=== PATIENT | male | born 1975 | race African-American/Black ===

== ENCOUNTER 2025-01-05 08:43 | Observation (INO) ==
--- NOTE | 2024-12-28 14:50 | History & Physical Report ---
Date of Service December 28, 2024 Assessment & Plan (1) Patellar tendon rupture: Plan: PRE-OP Diagnosis: Left knee patellar tendon rupture Planned Procedure: Left knee patellar tendon reconstruction with Achilles tendon autograft; possible hamstring tendon autograft Plan: Patient is scheduled to undergo this procedure with the [facility] as an inpatient with Dr. Jonas on January. Risks and complications of the procedure such as: Infection, bleeding, pain, scarring, nerve and blood vessel damage, weakness, wound problems, stiffness, incomplete relief of symptoms, tendon or ligament injury, hardware failure, blood clots, embolism, heart attack, stroke and were explained to the patient at his visit today. Informed consent to perform the procedure will be obtained on the day of surgery with Dr. Jonas present. At this point there is no clinical indication for any preoperative medical clearance or testing. During today's visit the PDMP was checked and no red flags were raised (from prescribing the patient an opioid analgesic for postoperative pain control. We will have the pharmacy [facility] the [facility] provide the patient with oxycodone, diclofenac sodium, aspirin and extra-strength Tylenol. Patient will most likely be in a splint or cast following the surgery. Will most likely transition him into a knee immobilizer at his 2-week postoperative follow-up visit. Patient will need physical therapy when available at the [facility]. I showed him some quad strengthening exercises that he can do on his own following surgery. Crutches will be provided by the [facility] and the patient will bring them with him on the day of the surgery. Patient is scheduled for a 2-week follow-up with Dr. Jonas on January 17. If he has questions or concerns prior to the procedure he will make the medical staff at [facility] aware. This chart was completed utilizing [employer] voice recognition software. Grammatical errors, random word insertions, pronoun errors, and in complete sentences are an occasional consequence of the system. Any questions or concerns about the content, text, or information contained within the body of this dictation should be addressed directly to the physician for clarification. History of Present Illness Chief Complaint: Chief Complaint: Left knee pain Primary Care Provider: [facility] History of Present Illness (including history relevant to procedure): This 49-year-old male inmate from [facility] presents to the clinic today for his preoperative history and physical. Patient states that approximately 5 years ago, the patient tore his patellar tendon while playing basketball. His foot slipped and caused him to fall on the concrete. He was seen at a hospital in [place] at the time, but declined to have surgery done at that time. However, he has continued to have problems with the knee ever since. The pain is mostly in his knee cap and has been bothering him intermittently. Occasionally, his knee will buckle and cause him to fall. After the initial injury, he was falling 3-4 times daily, and this has reduced to 1-2 times weekly more recently. He reports difficulty walking up stairs and has to hold onto the railing for stability. The patient has not been able to run since the injury, and he also cannot squat or lift. Patient is elected to proceed with surgical intervention at this time. Review Of Systems: A 12 point review of systems is performed and is unremarkable except for those things stated in the HPI and past medical history. Past Medical History: Problems: Hypercholesterolemia Hypertension ADHD Anemia Hiatal hernia History of hepatitis Procedure History Procedure Procedure Date Comments ACL reconstruction Hernia repair Allergies and Sensitivities: PCN (penicillin)(unknown) Current Home Meds: (Last Updated 12/28 09:07) amLODIPine ammonium lactate topical (ammonium lactate 5% topical lotion) atorvastatin (atorvastatin 10 mg oral tablet) 10 mg PO Daily multivitamin (Vitamin A & D) Initial Wt: 12/28 84.3 kg 185 lb Allergies Allergy/AdvReac Type Severity Reaction Status Date / Time Penicillins Allergy Unknown Verified 12/28/24 10:34 Home Medications Medication Instructions Recorded Confirmed Type amlodipine 10 mg tablet 10 mg PO QAM 12/28/24 12/28/24 History ammonium lactate 12 % lotion 1 applic topical BID 12/28/24 12/28/24 History atorvastatin 10 mg tablet 10 mg PO QAM 12/28/24 12/28/24 History vitamin A and D 1 applic topical BID 12/28/24 12/28/24 History Past Med/Surg History Problem List (Updated 12/28/24 @ 14:49 by Kurt Graves PA-C) Patellar tendon rupture Medical History Inmate in correctional facility Pain in left knee Other derangements of patella, left knee Ichthyosis vulgaris Hypertension, benign Hyperlipidemia HCV (hepatitis C virus) Disorder of the skin and subcutaneous tissue, unspecified Surgical History Surgical history unknown Social History Smoking Status: Unknown if ever smoked Preferred Language: Unknown Communication Ability: Unknown 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 Extraocular movements are intact Throat: Posterior oropharynx clear with absence of edema, erythema or exudate Cardiac: Regular rate and rhythm with no murmurs or gallops appreciated Lungs: Clear to auscultation throughout with no wheezing, rales or rhonchi Abdomen: Nonobese, nondistended, nontender with NABS Extremities: Left knee; visible patella may. Palpable defect from tibial tubercle to the inferior pole of the patella. Active range of motion is from 0 degrees extension to about 115 degrees of flexion. There is no laxity with varus or valgus stressing. AP drawer sign and Cindi test are negative. Patient was neurovascularly intact in the left lower extremity. Neuro: Cranial nerves II through XII are intact no motor or sensory deficit Skin: Normal appearance with no open skin areas or discharge Results & Data Diagnostic Findings Studies (relevant to the procedure): [facility] filmsobtained show no arthritis in the left knee. High riding patella consistent with patellar tendon rupture. Serpiginous calcification in the distal femur consistent with mild osteonecrosis. No fractures. Incidental note of ACL reconstruction on the right knee with hardware in place. Mild arthritis lateral compartment of the right knee. Neutral mechanical alignment. MRI report states medial and lateral menisci intact. Cruciate and collateral ligaments are intact. Tear in the patellar tendon off the inferior pole. Loss of posterior patellar cartilage.
--- NOTE | 2025-01-03 08:49 | Anesthesiology Consultation ---
Date of Service January 03, 2025 Assessment & Plan (1) Encounter for pre-operative examination: - Infectious disease screening: Per assessment on 12/28/24- No known recent infectious disease contacts or current infectious disease symptoms. Patient at [facility]. Will need preop Covid testing per protocol. - Preop testing: Borderline elevated potassium at 5.2 on preop labs from 12/28/24- at anesthesiologist discretion DOS if updated level needed from their perspective. Preop EKG done 12/28/24 notes TWA, consider anterolateral ischemia on unconfirmed report. Poor data quality > will update EKG DOS. Chart Review Chart Review: Acceptable Risk for Surgery (pending EKG/evaluation DOS) and Patient NOT seen in Pre Admission Testing History Surgery Operation Date: 01/05/25 10:25 Proposed Procedures p Left Knee Open Patellar Tendon Reconstruction with Achilles Tendon Allograft - Herson Jonas MD Height/Weight Height: 6 ft Weight: 84.368 kg Allergies Allergy/AdvReac Type Severity Reaction Status Date / Time Penicillins Allergy Unknown Verified 12/28/24 10:34 Medications Home Medications Medication Instructions Recorded Confirmed Last Taken amlodipine 10 mg tablet 10 mg PO QAM 12/28/24 12/28/24 Unknown ammonium lactate 12 % lotion 1 applic topical BID 12/28/24 12/28/24 Unknown atorvastatin 10 mg tablet 10 mg PO QAM 12/28/24 12/28/24 Unknown vitamin A and D 1 applic topical BID 12/28/24 12/28/24 Unknown Past Medical History Medical History Disorder of the skin and subcutaneous tissue, unspecified HCV (hepatitis C virus) Hyperlipidemia Hypertension, benign Ichthyosis vulgaris Inmate in correctional facility Other derangements of patella, left knee Past Surgical History Surgical History Surgical history unknown Social History Smoking Status: Unknown if ever smoked Testing Laboratory Results 12/28/24 WBC 5.29 H/H 14.0/42.2 PLATELETS 282 SODIUM 141 POTASSIUM 5.2 CHLORIDE 106 CO2 29 BUN 17 CREATININE 1.17 GLUCOSE 92 Electrocardiogram Date: 12/29/24 SB at 58bpm. iRBBB. TWA, consider anterolateral ischemia. unconfirmed report.
[~2025-01-05 08:43] MED LIST: ALLERGY Noted to ORDERED Medication SCH; BUPIVACAINE 0.25% PF 30 ML VIAL ONE
[2025-01-05] MEDS ORDERED: ROPIVACAINE 0.5% 5 MG/ML 30 ML VIAL ONE (08:52)
[2025-01-05] MEDS: LR 15ML/HR IV SCH (09:34)
--- NOTE | 2025-01-05 10:17 | History & Physical Bridge Note ---
Date of Service January 05, 2025 History & Physical Bridge Note I have examined the patient, reviewed the History & Physical and in the interval since the performance of the History & Physical I have noted the following changes of clinical significance: no changes noted
[2025-01-05] MEDS ORDERED: Nursing to Pharmacy Communication STA (10:18)
[2025-01-05] MEDS ORDERED: fentaNYL citrate PF 100 MCG/2 ML VIAL ONE (10:37)
[2025-01-05] MEDS ORDERED: MIDAZOLAM HCL 1 MG/ML 2ML VIAL ONE ×2 (10:37)
[2025-01-05] MEDS: TRANEXAMIC ACID 1,000 MG **IV Pre-op IV SCH (10:47)
[2025-01-05] MEDS ORDERED: ATROPINE SULFATE 0.1 MG/ML 10ML SYR IV PRN (11:05)
[2025-01-05] MEDS ORDERED: ONDANSETRON INJ 2 MG/ML 2 ML VIAL IV PRN ×2 (11:05→14:16)
[2025-01-05] MEDS ORDERED: ePHEDrine sulfate 50 MG/ML AMP IV PRN (11:05)
[2025-01-05] MEDS ORDERED: PROMETHAZINE HCL 6.25 MG in SODIUM CHLORIDE 0.9% 50 ML IV PRN (11:05)
[2025-01-05] MEDS ORDERED: HYDROmorphone INJ 2 MG/ML SYR/VIAL IV PRN (11:05)
[2025-01-05] MEDS: ceFAZolin 2000MG 2,000 MG/15 ML SYR IV SCH ×2 (11:10→20:48)
[2025-01-05] MEDS ORDERED: ePHEDrine sulfate 50 MG/5 ML SYR ONE (11:37)
[2025-01-05] MEDS ORDERED: PHENYLEPHRINE 100MCG/ML 5ML SYR ONE (11:37)
[2025-01-05] MEDS ORDERED: PROPOFOL IV EMULSION 10 MG/ML 20 ML VIAL IV ONE (11:37)
[2025-01-05] MEDS ORDERED: LIDOCAINE 2% 2 ML VIAL/AMP(20MG/ML) INFIL ONE (11:37)
[2025-01-05] MEDS: VANCOMYCIN HCL 1000MG/20ML VIAL ONE (11:40)
[2025-01-05] MEDS ORDERED: DEXAMETHASONE SOD INJ 4 MG/ML VIAL ONE (12:26)
[2025-01-05] MEDS ORDERED: ONDANSETRON INJ 2 MG/ML 2 ML VIAL ONE (12:26)
[2025-01-05] MEDS ORDERED: ceFAZolin 330 MG/ML 1 GM VIAL ONE (12:53)
[2025-01-05] MEDS ORDERED: HYDROmorphone INJ 2 MG/ML SYR/VIAL ONE (12:53)
--- NOTE | 2025-01-05 13:53 | Fluoroscopy Report ---
FL knee LT 1 or 2V CLINICAL HISTORY: LEFT KNEE COMPARISON STUDY: None pertinent FLUOROSCOPY TIME: 22 seconds FLUOROSCOPY IMAGES: 5 EXPOSURE DOSE: 0.63 mGy FINDINGS: Fluoroscopy guidance provided for patella tendon repair IMPRESSION: Please refer to the operative report for evaluation based upon real-time fluoroscopic obs ervation. ACT 112: Negative or not required by law. Electronically signed by: Sabrina Saini M.D. 01/05/2025 1:52 PM
[2025-01-05] MEDS ORDERED: METOCLOPRAMIDE HCL INJ 5 MG/ML 2 ML VIAL IV PRN (14:16)
[2025-01-05] MEDS ORDERED: NALOXONE HCL 0.4 MG/1 ML VIAL/CARP IV PRN (14:16)
[2025-01-05] MEDS ORDERED: bisacodyL 10 MG SUPP PR PRN (14:16)
[2025-01-05] MEDS ORDERED: diphenhydrAMINE 50 MG/ML VIAL IV PRN (14:16)
[2025-01-05] MEDS ORDERED: MAGNESIUM HYDROXIDE SUSP 30 ML UDC PO PRN (14:16)
[2025-01-05] MEDS ORDERED: ALUMINUM/MAGNESIUM SUSP 30 ML UDC PO PRN (14:16)
[2025-01-05] MEDS ORDERED: TAMSULOSIN HCL 0.4 MG CAP PO PRN (14:16)
--- NOTE | 2025-01-05 14:16 | Operative Report ---
Post Operative Report Pre & Post Diagnosis Operation Date: 01/05/25 10:25 Pre-Op Diagnosis: Left Knee Patellar Tendon Rupture Post-Op Diagnosis: Left Knee Patellar Tendon Rupture I identified the patient and participated in the time-out.: Yes Procedure Operation Date: 01/05/25 10:25 Actual Procedures p Left Knee Open Patellar Tendon Reconstruction with Achilles Tendon Allograft(Left) - Herson Jonas MD Surgeon Herson Jonas MD Final Block Press Operator Zita Graves PA-C; no fellow Estimated Blood Loss 25 Findings Consistent with Post-Op Diagnosis Specimens none Description of Procedure I was present during the entire case assisting with positioning, prepping, draping, wound retraction, wound closure, dressing and cast placement. No fe llow present. Please see Dr. Jonas procedure note for specifics of the case. I attest to the content of the Intraoperative Record and any orders documented therein. Any exceptions are noted below.
--- OUTSIDE RECORDS SUMMARY | 2025-01-05 14:34 | External Medical Summary | Continuity of Care Document ---
Author Name Unknown Organization [facility] [address] [facility] [address] Address [address] [place] [phone] Support Name Relationship Address Phone [employer], [facility] Personal Relationship Unkn own Unavailable [id number] Date(s): 12/28/24 - 12/28/[facility] [address] [facility] [address] [place] [id number] Encounter Diagnosis Preop examination(Discharge Diagnosis) - 12/28/24 Patellar tendon rupture(Discharge Diagnosis) - 12/28/24 Discharge Disposition: Home or Self Care Attending Physician: BRIAN Graves Dennis Referring Physician: MD Pritesh, Herson Jordan Encounter Type: Clinic Allergies, Adverse Reactions, Alerts Substance Criticality Severity Reaction Reaction Severity Status PCN (penicillin) Unable to assess criticality Moderate unknown Active Medications amLODIPine Start: 11/08/24 1:13:00 PM EST Start Date: 11/08/24 Status: Ordered Repeat number: 1 ammonium lactate 5% topical lotion Start: 11/08/24 1:13:00 PM EST Start Date: 11/08/24 Status: Ordered Repeat number: 1 atorvastatin 10 mg oral tablet Start: 11/08/24 1:13:00 PM EST, 1 tab, PO, Daily Start Date: 11/08/24 Status: Ordered Repeat number: 1 Vitamin A & D Start: 11/08/24 1:13:00 PM EST Start Date: 11/08/24 Status: Ordered Repeat number: 1 Mental Status 12/28/24 Barriers to Learning one year None evide nt Mandatory Health Literacy Documentation Yes Health Literacy Communication Barriers N ever Primary Language Syriac Problem List No Chronic Problems Diagnosis Diagnosis Type Effective Dates Health Status Clinical Service Informant Preop examination Discharge Diagnosis 12/28/24 Patellar tendon rupture Discharge Diagnosis 12/28/24 Vital Signs Most recent to oldest [Reference Range]: 1 Height 182.8 cm (12/28/24 9:08 AM) Patient Weight 84.3 kg (12/28/24 9:08 AM) Body Mass Index 25.23 kg/m2 (12/28/24 9:08 AM) Temperature [36.5-37.9 DegC] 36.4 DegC *LOW* (12/28/24 9:08 AM) Respiratory Rate 20 br/min (12/28/24 9:08 AM) Blood Pressure 114/82mmHg (12/28/24 9:08 AM) Cuff Pulse Pressure 32 mmHg (12/28/24 9:08 AM) Social History Social History Type Response Smoking Status Never smoked cigaret luis antonio Sex Sex Representation Male (finding) Pre-OP H & P * BRIAN Graves, Kurt: PERFORM Event Display: Pre-OP H & P Authored Date: [id number] PRE-OPERATIVE HISTORY AND PHYSICAL Name: SONYA CM Patient Number: [id number] : [id number] Date of Service: 12/28/2024 PRE-OP Diagnosis: Left knee patellar tendon rupture Planned Procedure: Left knee patellar tendon reconstruction with Achilles tendon autograft; possible hamstring tendon autograft Chief Complaint: Left knee pain History of Present Illness (including history relevant to procedure): This 49-year-old male inmate from [facility] presents to the clinic today for his preoperative history and physical. Patient states that approximately 5 years ago, the patient tore his patellar tendon while playing basketball. His foot slipped and caused him to fall on the concrete. He was seen at a hospital in [place] at the time, but declined to have surgery done at that time. However, he has continued to have problemswith the knee ever since. The pain is mostly in his knee cap and has been bothering him intermittently. Occasionally, his knee will buckle and cause him to fall. After the initial injury, he was falling 3-4 times daily, and this has reduced to 1-2 times weekly more recently. He reports difficulty walking up stairs and has to hold onto the railing for stability. The patient has not been able to run since the injury, and healso cannot squat or lift. Patient is elected to proceed with surgical intervention at this time. Review Of Systems: A 12 point review of systems is performed and is unremarkable except for those things stated in the HPI and past medical history. Past Medical History: Problems: Hypercholesterolemia Hypertension ADHD Anemia Hiatal hernia History of hepatitis Procedure History Procedure Procedure Date Comments ACL reconstruction Hernia repair Allergies and Sensitivities: PCN (penicillin)(unknown) Current Home Meds: (Last Updated 12/28 09:07) amLODIPine ammonium lactate topical (ammonium lactate 5% topical lotion) atorvastatin (atorvastatin 10 mg oral tablet) 10 mg PO Daily multivitamin (Vitamin A & D) Vitals: Last Updated 12/28/24 09:08 Weights: Last Updated 12/28/24 09:08 Date Temp Pulse BP RR SpO2 FIO2 Date Wt(kg) Wt(lb) 12/28 09:08 36.4 114/82 20 96 12/28 09:08 84.3 185 12/28 09:08 84.3 185 24 Hr Tmax: 36.4 at 12/28 09:08 Initial Wt: 12/28 84.3 kg 185 lb Physical Exam: (relevant to the procedure, including heart and lung evaluation) General: Alert and oriented x 3 with proper grooming and hygiene Eyes: Pupils are equal and reactive to light with accommodation. Extraocular movements are intact Throat: Posterior oropharynx clear with absence of edema, erythema or exudate Cardiac: Regular rate and rhythm with no murmurs or gallops appreciated Lungs: Clear to auscultation throughout with no wheezing, rales or rhonchi Abdomen: Nonobese, nondistended, nontender with NABS Extremities: Left knee; visible patella may. Palpable defect from tibial tubercle to the inferior pole of the patella. Active range of motion is from 0 degrees extension to about 115 degrees of flexion. There is no laxity with varus or valgus stressing. AP drawer sign and Cindi test are negative. Patient was neurovascularly intact in the left lower extremity. Neuro: Cranial nerves II through XII are intact no motor or sensory deficit Skin: Normal appearance with no open skin areas or discharge Studies (relevant to the procedure): 3 views of the left knee and long leg alignment films obtained show no arthritis in the left knee. High riding patella consistent with patellar tendon rupture. Serpiginous calcification in the distal femur consistent with mild osteonecrosis. No fractures. Incidental note of ACL reconstruction on the right knee with hardware in place. Mild arthritis lateral compartment of the right knee. Neutral mechanical alignment. MRI report states medial and lateral menisci intact. Cruciate and collateral ligaments are intact. Tear in the patellar tendon off the inferior pole. Loss of posterior patellar cartilage. Plan: Patient is scheduled to undergo this procedure with the [facility] as an inpatient with Dr. Jonas on January. Risks and complications of the procedure such as: Infection, bleeding, pain, scarring, nerve and blood vessel damage, weakness, wound problems, stiffness, incomplete relief of symptoms, tendon or ligament injury, hardware failure, blood clots, embolism, heart attack, stroke and were explained to the patient at his visit today. Informed consent to perform the procedure will be obtained on the day of surgery with Dr. Jonas present.At this point there is no clinical indication for any preoperative medical clearance or testing. Dur ing today's visit the PDMP was checked and no red flags were raised (from prescribing the patient an opioid analgesic for postoperative pain control. [facility] with oxycodone, diclofenac sodium, aspirin and extra-strength Tylenol. Patient will most likely be in a splint or cast following the surgery. Will most likely transition him into a knee immobilizer at his 2-week postoperative follow-up visit. Patient will [facility]. I showed him some quad strengthening exercises that he can do on his own following surgery. Crutches will be provided by the jail and the patient will bring them with him on the day of the surgery. Patient is scheduled for a 2-week follow-up with Dr. Jonas on January 17. If he has questions or concerns prior to the procedure he will make the medical staff at [facility] aware. This chart was completed utilizing [employer] voice recognition software. Grammatical errors,random word insertions, pronoun errors, and in complete sentences are an occasional consequence of the system. Any questions or concerns about the content, text, or information contained within the body of this dictation should be addressed directly to the physician for clarification. Electronic Signature on File Electronically Reviewed/Signed by: Kurt Graves PA-C Author Signature Dt/Tm:12/28/2024 02:09 PM Division of Sports Medicine Electronically Reviewed/Signed by: Herson Jonas MD Cosigner Signature Dt/Tm: 12/29/2024 03:07PM Division of Sports Medicine [place] Insurance Providers Guarantor name: [facility] Information #: 1 Payer: [employer] Member Number: [id number] Policy Number: NA Group Number: NA Health Plan Information #: 2 Payer: [employer] Member Number: [id number] Policy Number: NA Group Number: NA
--- NOTE | 2025-01-05 14:38 | Operative Report ---
Post Operative Report Pre & Post Diagnosis Operation Date: 01/05/25 10:25 Pre-Op Diagnosis: Left Knee Chronic Patellar Tendon Rupture Post-Op Diagnosis: Left Knee Chronic Patellar Tendon Rupture I identified the patient and participated in the time-out.: Yes Procedure Operation Date: 01/05/25 10:25 Actual Procedures p Left Knee Open Patellar Tendon Reconstruction with Achilles Tendon Allograft(Left) if the patellar tendon repair CPT code is used, then a 22 modifier should be added given the increased time and difficulty associated with doing a chronic patellar tendon reconstruction with an allograft - Herson Jonas MD Surgeon Herson Jonas MD Software Asset Management Analyst Zita Graves PA-C; no fellow was available Estimated Blood Loss 25 Findings Consistent with Post-Op Diagnosis Specimens None Anesthesia Type General Regional Complications none Disposition Disposition: Recovery Room Indications 49-year-old male, incarcerated, tore his left knee patellar tendon over 5 years ago. Patient declined operative intervention at that time. Since then however he has had issues with buckling of his knee. He falls 1-2 times per week because his knee gives out. He has difficulty walking up stairs. On exam he has a palpable gap at the inferior pole of the patella and has patella may consistent with a chronic patellar tendon rupture. X-rays demonstrate patella may with an enthesophyte. MRI demonstrates chronic patellar tendon rupture. I had a long discussion with the patient about his diagnosis and treatment options. Given his level of disability with falling and difficulty walking he is a candidate for surgery. I discussed the risks and benefits of surgery, alternatives to surgery, and expected outcomes. After reviewing all these he elected to proceed with surgery. All questions were answered. Informed consent was signed. Description of Procedure Patient was identified in the preoperative holding area where his surgical site was marked. He was given an adductor canal block by anesthesia then brought back to the operating room where he was moved onto the operating room table and general anesthesia was administered. A sandbag was placed underneath the operative hip. All bony prominences were padded. Perioperative antibiotics were administered. He was prepped and draped in the usual sterile fashion. Prior to incision a multidisciplinary timeout was called. All in the room were in agreement. I began by following the Achilles tendon allograft and warm saline solution. We then measured our bone block which was 14 mm in diameter and 22 mm in length. I used an ACL sawblade to resect a portion of the cancellous bone in order to make the thickness of the bone block approximately 8 mm. I then drilled the bone block using a 3.5 mm drill to allow for placement of a 4.5 mm cortical screw. Once this was complete the allograft was placed and a dilute vancomycin solution 5 mg/mL until we were ready to use it in the patient. A 16 cm long incision was then made starting from just below the tibial tubercle to approximately 3 fingerbreadths above the patella. I dissected down to subcutaneous tissues to level the fascia. Full-thickness flaps were raised above the fascia. Hemostasis was achieved using Bovie electrocautery. I then explored the patellar tendon. His qagan tayagungin patella tendon remained attached to the tibial tubercle. However there was scar tissue between the qagan tayagung[place] tendon and the superiorly migrated patella. I started by dissecting off the inferior pole the patella to expose this and began removing scar tissue. I kept removing scar tissue until I reached his qagan t[place] patellar tendon. This left a rectangular gap of about 5-6 cm in proximal to distal length, and a width of approximately 4 cm. However with the knee in full extension I could reduce the qagan t[place] patella tendon back to the patella. Next, I prepared the inferior pole of the patella by removing the enthesophyte. Healthy bleeding bone was exposed. Once this was complete 2 Arthrex suture tapes were opened up. These were run in Krakw fashion first on the lateral side of the tendon then back up the middle of the tendon with one of the sutures. Second suture ran down the medial side of the tendon and back up through the middle of the tendon. I measured the distance between the sutures. I then plan for where our transosseous tunnels would go in the patella. In between these 3 planned holes I then placed 2 Arthrex knee fiber tack sutures. I drilled for these and secured the anchor so would be in a subcortical location. Once this was complete the transosseous drill holes were made using a 2.0 mm drill. A RewardMe suture passer was then used to pass the suture tapes through the transosseous tunnels. A right angle clamp was used to secure the sutures underneath the quadriceps tendon. These were then secured with hemostats and we turned our attention toward the tibial tubercle. The distal aspect of the patellar tendon attachment was identified and marked on the tibia. I then marked out a rectangular block approximately 16 mm x 25 mm using Bovie electrocautery. This was to allow the Achilles bone block to be secured within it. ACL saw was used to make our rectangular shaped osteotomy just below the tibial tubercle. Osteotomes were used to remove the rectangular piece of bone. I then used a rongeur to remove any cancellous bone from the underside of this piece of bone for later bone grafting. Next, the allograft bone block was brought up onto the surgical field. It fit nicely within the rectangular bone trough I had created. Fluoroscopy was then brought in. 3.2 mm drill was then used to drill in bicortical fashion. I took my measurement which was 50 mm. I elected to use a 52 mm screws I wanted to use a washer. I had to tap the far cortex in order to get the screw to grasp the far cortex. Once this was complete I was able to tighten down the 52 x 4.5 mm Arthrex screw with a washer. Excellent fixation was obtained. I was happy with the appearance under fluoroscopy. Next, 2 Arthrex 1.8 mm knotless fiber tack anchors were placed immediately above the bone trough. Using a free Rivero needle I passed the repair stitch through the tendon at the location of the suture anchor. The passing suture was then used to engage the knotless mechanism and compressed the tendon down onto the tibial tubercle. Again excellent fixation was obtained. Next, the patella was pulled distally using a towel clip and the quadriceps tendon. I then tied down the suture tapes reapproximating the qagan tayag[place] patellar tendon onto the inferior pole of the patella. Once this was complete the fiber tack suture tapes were passed and horizontal mattress fashion through the Achilles tendon at the appropriate location. These were tied down to compress the tendon on the inferior pole of the patella. Sutures do not cut however. I then ran a single limb of suture tape down the medial and lateral sides to compress the Achilles tendon onto his qagan t[place]ag[place] patellar tendon to facilitate healing. These were tied to each other distally. Another set of suture tapes were tied between the 2 anchors compressing the tendon further on the inferior pole the patella. The knee fiber tacks were double loaded anchors. Therefore, the other set of suture tapes with 4 total sutures were run up the Achilles allograft incorporated into the patient's qagan tayagung[place] patellar retinaculum and quadriceps tendon. Sutures were tied to each other proximally. Excellent fixation was obtained. At this point fluoroscopy was brought in and we checked the position of her patella on the lateral view which I was happy with. I was happy with the position of the hardware. The knee was irrigated out with copious amounts normal saline. The patient had developed dogears along the patellar retinaculum as a result of reducing his patella back to its normal height. The dogears were excised with electrocautery and then closed using 0 Vicryl suture in [id number] fashion. Once this is complete the deep dermis was closed with interrupted 2-0 Vicryl sutures in buried fashion. The skin was closed with a running Monocryl suture. Dermabond was placed followed by Steri-Strips. Sterile dressing was applied. The patient was then placed into a cylindrical cast from just above his ankle up to his groin to hold the knee in full extension. This was carefully molded above the supracondylar region. Once the cast was dry the patient was awoke from anesthesia and transferred to cover room in stable condition. Postoperative course: Patient will be admitted to the hospital overnight for IV antibiotics and monitoring. Likely discharge back to his shelter facility tomorrow. Plan will be for 6 weeks in a long-leg cast. All of his sutures are absorbable so the cast does not be need to be removed unless it becomes loose or has some other problem. After 6 weeks he will transition to a hinged knee brace locked in full extension while ambulating and begin working on regaining his range of motion starting 0 to 30 degrees. Every 2 weeks after that he can add another 30 degrees until he is all the way to 120 degrees of flexion. Hinged knee brace should be worn for minimum of 6 to 8 weeks after the cast is removed. Patient can weight-bear as tolerated with his cast in place. He can do straight leg raises as tolerated. Aspirin for DVT prophylaxis. I attest to the content of the Intraoperative Record and any orders documented therein. Any exceptions are noted below.
--- NOTE | 2025-01-05 14:43 | Electrocardiogram Report ---
Test Reason : Blood Pressure : */* mmHG Vent. Rate : 69 BPM Atrial Rate : 69 BPM P-R Int : 166 ms QRS Dur : 96 ms QT Int : 378 ms P-R-T Axes : 47 -59 53 degrees QTcB Int : 405 ms Normal sinus rhythm Incomplete right bundle branch block Left anterior fascicular block Nonspecific T wave abnormality Anterior leads Abnormal ECG No previous ECGs available Confirmed by Milton Stanford ([id number] on 01/05/2025 2:42:45 PM Referred By: Herson Jonas Confirmed By: Milton Stanford
[2025-01-05] MEDS: fentaNYL citrate PF 100 MCG/2 ML VIAL IV PRN (14:49)
--- NOTE | 2025-01-05 15:07 | Anesthesiology Progress Note ---
Date of Service January 05, 2025 Anesthesia Post Procedure Vital Signs Vital Signs: Temp Pulse Pulse Resp BP Pulse Ox O2 Del Method 01/05/25 15:00 72 12 123/75 93 Room Air 01/05/25 14:50 36.4 C L 73 12 126/81 100 Room Air 01/05/25 14:40 77 12 130/79 100 Room Air 01/05/25 14:30 76 12 128/83 100 Oxymask 01/05/25 14:22 36.1 C L 79 16 109/73 100 Oxymask 01/05/25 09:11 36.8 C 67 18 129/98 98 Room Air O2 Flow Rate 01/05/25 15:00 01/05/25 14:50 01/05/25 14:40 01/05/25 14:30 6 01/05/25 14:22 6 01/05/25 09:11 Pain Intensity Left Leg: Pain Intensity: 6 Transfer of Care Handoff Completed per policy Notes Mental Status: alert / awake / arousable Patient Amnestic to Procedure: Yes Nausea / Vomiting: adequately controlled Pain: adequately controlled Airway Patency, RR, SpO2: stable & adequate BP & HR: stable & adequate Hydration State: stable & adequate Anesthetic Complications: no major complications apparent
[2025-01-05] MEDS: KETOROLAC 30 MG/ML VIAL IV SCH (16:07)
--- NOTE | 2025-01-05 16:22 | Orthopedic Progress Note ---
Date of Service January 05, 2025 Assessment & Plan (1) Status post left knee surgery: Plan: Weightbearing as tolerated with the cylindrical cast to be kept clean dry and intact. PT OT tomorrow. Elevate the left lower extremity on pillows. Aspirin for DVT prophylaxis. Likely will be able to discharge back to his facility tomorrow. Admission and Anticipated Discharge Date Admission Date: January 05, 2025 Subjective Postop day 0 following left knee patellar tendon reconstruction with Achilles allograft. Patient reports his pain is under okay control. He did receive some medication through his IV. He reports he is very hungry. He reports the cast is fitting him well. Denies numbness or tingling in his foot. Physical Exam Physical Exam: Resting in bed in no acute distress. Left lower extremity exam reveals the cast to be in good position. He is able to fire his toe flexors and extensors and ankle dorsiflexors and plantar flexors. Reports sensation intact to moving light touch over the dorsal and plantar aspects of the foot. Results & Data Vital Signs (Past 12 Hours) Vital Signs Temp Pulse Pulse Resp BP Pulse Ox O2 Del Method 01/05/25 15:46 36.4 C L 70 15 132/75 100 Room Air 01/05/25 15:15 75 14 113/73 96 Room Air 01/05/25 15:05 36.4 C L 66 16 124/84 100 Room Air 01/05/25 15:00 72 12 123/75 93 Room Air 01/05/25 14:50 36.4 C L 73 12 126/81 100 Room Air 01/05/25 14:40 77 12 130/79 100 Room Air 01/05/25 14:30 76 12 128/83 100 Oxymask 01/05/25 14:22 36.1 C L 79 16 109/73 100 Oxymask 01/05/25 09:11 36.8 C 67 18 129/98 98 Room Air O2 Flow Rate 01/05/25 15:46 01/05/25 15:15 01/05/25 15:05 01/05/25 15:00 01/05/25 14:50 01/05/25 14:40 01/05/25 14:30 6 01/05/25 14:22 6 01/05/25 09:11
[2025-01-05] MEDS: oxyCODONE HCL IR 5 MG TAB (IMMEDIATE RELEASE) PO PRN (18:04)
[2025-01-05] MEDS: HYDROmorphone INJ 0.5 MG/0.5 ML SYR IV PRN (19:44)
[2025-01-05] MEDS: SENNA 8.6 MG TAB PO SCH (20:44)
[2025-01-05] MEDS: DOCUSATE SODIUM 100 MG CAP PO SCH (20:44)
[2025-01-05] MEDS: ASPIRIN 81 MG ECTAB PO SCH (20:44)
[2025-01-05] MEDS: ATORVASTATIN 10 MG TAB PO SCH (20:45)
[2025-01-05] MEDS: ACETAMINOPHEN 500 MG TAB PO SCH (22:24)
[2025-01-06 07:21] LABS: Hemoglobin 12.5 g/dl (14.0-18.0); Mean Corpuscular Hemoglobin 30.1 pg (25.0-34.0); Mean Corpuscular Hgb Conc 33.8 g/dL (32.0-36.0); Mean Corpuscular Volume 89.2 fL (80.0-100.0); Mean Platelet Volume 10.4 fL (9.4-12.4); Platelet Count 233 K/uL (130-400); RDW Coefficient of Variation 12.5 % (11.5-14.5); RDW Standard Deviation 40.9 fL (36.4-46.3); Red Blood Count 4.15 M/uL (4.70-6.10); White Blood Count 8.79 K/ul (4.8-10.8)
[2025-01-06] MEDS: dexAMETHasone 10 MG in SYRINGE 0 ML IV SCH (07:26)
[2025-01-06 07:39] LABS: BUN Creatinine Ratio 15.3 (10-20); Calcium 8.9 mg/dl (8.6-10.3); Creatinine Clr Calc Pharmacy 88.4 ml/min; Potassium 4.7 mmol/L (3.5-5.1)
[2025-01-06 08:12] VITALS: BP 105/65; PULSE 61; RESP 16; TEMP 99.3; O2SAT 98
[2025-01-06] MEDS: amLODIPine BESYLATE 5 MG TAB PO SCH (08:36)
[2025-01-06] MEDS: MULTIVITAMIN TAB PO SCH (08:36)
--- NOTE | 2025-01-06 10:22 | Orthopedic Progress Note ---
Date of Service January 06, 2025 Assessment & Plan (1) Status post left knee surgery: Plan: Weightbearing as tolerated with the cylindrical cast to be kept clean dry and intact. Walker or crutches for assistance PT/OT Elevate the left lower extremity on pillows. Aspirin for DVT prophylaxis. Pain control with p.o. medication Follow-up at [facility] orthopedics in 2 weeks for with a set of x-rays with the cast in place Plan is [facility]. With questions have medical staff contact our clinic at [phone] Admission and Anticipated Discharge Date Admission Date: January 05, 2025 Subjective This 49-year-old male is day 1 status post left knee patellar tendon reconstruction with Achilles tendon allograft. Patient states he is doing very well. States that his cast is fairly comfortable. He denies any numbness or tingling in his left lower extremity. Patient also denies chest pain, shortness of breath, nausea, vomiting, diarrhea or or difficulty voiding. He is hoping to be [facility] today. Review of Systems Review of Systems: All systems reviewed & are unremarkable except as noted in Subjective Physical Exam Physical Exam: Left lower extremity: Cast is clean dry and intact and left in place. Patient is able to perform active straight leg raise test. He he is able to actively dorsi and plantarflex his foot. His peripheral pulses are 2+. He is able to detect light sensation touch over the pads of all digits. Quad strength is 4+ out of 5. Results & Data Vital Signs (Past 12 Hours) Vital Signs Temp Pulse Resp BP Pulse Ox O2 Del Method 01/06/25 08:11 37.4 C 61 16 105/65 98 Room Air 01/06/25 03:00 36.8 C 70 18 95/54 L 96 Room Air 01/05/25 23:37 36.8 C 79 18 128/73 100 Room Air Diagnostic Findings Laboratory Results WBC 8.79 K/ul (4.8-10.8) 01/06/25 06:09 RBC 4.15 M/uL (4.70-6.10) L 01/06/25 06:09 Hgb 12.5 g/dl (14.0-18.0) L 01/06/25 06:09 Hct 37.0 % (42.0-52.0) L 01/06/25 06:09 MCV 89.2 fL (80.0-100.0) 01/06/25 06:09 MCH 30.1 pg (25.0-34.0) 01/06/25 06:09 MCHC 33.8 g/dL (32.0-36.0) 01/06/25 06:09 RDW Std Deviation 40.9 fL (36.4-46.3) 01/06/25 06:09 RDW Coeff of Rob 12.5 % (11.5-14.5) 01/06/25 06:09 Plt Count 233 K/uL (130-400) 01/06/25 06:09 MPV 10.4 fL (9.4-12.4) 01/06/25 06:09 Sodium 136 mmol/L (136-145) 01/06/25 06:09 Potassium 4.7 mmol/L (3.5-5.1) 01/06/25 06:09 Chloride 104 mmol/L (98-107) 01/06/25 06:09 Carbon Dioxide 28 mmol/L (21-32) 01/06/25 06:09 Anion Gap 4 (3-11) 01/06/25 06:09 BUN 17 mg/dl (6-23) 01/06/25 06:09 Creatinine 1.11 mg/dl (0.6-1.4) 01/06/25 06:09 Est Cr Clr Drug Dosing 88.4 ml/min 01/06/25 06:09 eGFR 81.40 01/06/25 06:09 BUN/Creatinine Ratio 15.3 (10-20) 01/06/25 06:09 Glucose 136 mg/dl (70-99(Fasting)) H 01/06/25 06:09 Calcium 8.9 mg/dl (8.6-10.3) 01/06/25 06:09 SARS-CoV-2, RNA, NAAT NEGATIVE (NEGATIVE) 01/05/25 Unknown Impressions Knee X-Ray 01/05/25 10:25 FL knee LT 1 or 2V CLINICAL HISTORY: LEFT KNEE COMPARISON STUDY: None pertinent FLUOROSCOPY TIME: 22 seconds FLUOROSCOPY IMAGES: 5 EXPOSURE DOSE: 0.63 mGy FINDINGS: Fluoroscopy guidance provided for patella tendon repair IMPRESSION: Please refer to the operative report for evaluation based upon real- time fluoroscopic observation. ACT 112: Negative or not required by law. Electronically signed by: Sabrina Saini M.D. 01/05/2025 1:52 PM
--- NOTE | 2025-01-06 10:27 | Discharge Summary ---
Date of Service January 06, 2025 Admission HPI Per Admitting Provider History of Present Illness (including history relevant to procedure): This 49-year-old male inmate from [facility] presents to the clinic today for his preoperative history and physical. Patient states that approximately 5 years ago, the patient tore his patellar tendon while playing basketball. His foot slipped and caused him to fall on the concrete. He was seen at a hospital in [place] at the time, but declined to have surgery done at that time. However, he has continued to have problems with the knee ever since. The pain is mostly in his knee cap and has been bothering him intermittently. Occasionally, his knee will buckle and cause him to fall. After the initial injury, he was falling 3-4 times daily, and this has reduced to 1-2 times weekly more recently. He reports difficulty walking up stairs and has to hold onto the railing for stability. The patient has not been able to run since the injury, and he also cannot squat or lift. Patient is elected to proceed with surgical intervention at this time. Review Of Systems: A 12 point review of systems is performed and is unremarkable except for those things stated in the HPI and past medical history. Past Medical History: Problems: Hypercholesterolemia Hypertension ADHD Anemia Hiatal hernia History of hepatitis Procedure History Procedure Procedure Date Comments ACL reconstruction Hernia repair Allergies and Sensitivities: PCN (penicillin)(unknown) Current Home Meds: (Last Updated 12/28 09:07) amLODIPine ammonium lactate topical (ammonium lactate 5% topical lotion) atorvastatin (atorvastatin 10 mg oral tablet) 10 mg PO Daily multivitamin (Vitamin A & D) Initial Wt: 12/28 84.3 kg 185 lb Admission Exam Per Admitting Provider Physical Exam: (relevant to the procedure, including heart and lung evaluation) General: Alert and oriented x 3 with proper grooming and hygiene Eyes: Pupils are equal and reactive to light with accommodation. Extraocular movements are intact Throat: Posterior oropharynx clear with absence of edema, erythema or exudate Cardiac: Regular rate and rhythm with no murmurs or gallops appreciated Lungs: Clear to auscultation throughout with no wheezing, rales or rhonchi Abdomen: Nonobese, nondistended, nontender with NABS Extremities: Left knee; visible patella may. Palpable defect from tibial tube rcle to the inferior pole of the patella. Active range of motion is from 0 degrees extension to about 115 degrees of flexion. There is no laxity with varus or valgus stressing. AP drawer sign and Cindi test are negative. Patient was neurovascularly intact in the left lower extremity. Neuro: Cranial nerves II through XII are intact no motor or sensory deficit Skin: Normal appearance with no open skin areas or discharge Principal Diagnosis Left knee patellar tendon rupture Discharge Exam Left lower extremity: Cast is clean dry and intact and left in place. Patient is able to perform active straight leg raise test. He he is able to actively dorsi and plantarflex his foot. His peripheral pulses are 2+. He is able to detect light sensation touch over the pads of all digits. Quad strength is 4+ out of 5. Discharge Data Allergies Allergy/AdvReac Type Severity Reaction Status Date / Time Penicillins Allergy Intermediate as child- Verified 01/05/25 08:54 eyes swelling "I couldn't see out of them" Procedures Performed Operation Date: 01/05/25 10:25 Actual Procedures p Left Knee Open Patellar Tendon Reconstruction with Achilles Tendon Allograft(Left) - Herson Jonas MD Ordered Studies 01/05/25 10:25 FL knee LT 1 or 2V Routine 01/05/25 10:42 US - OR guided needle placemen Stat Hospital Course (1) Status post left knee surgery: Patient had an uneventful overnight stay following left patellar tendon reconstruction with Achilles tendon allograft. Plan is to discharge back to [facility] later today. If patient has issues or questions please contact our clinic. He will be scheduled for follow-up in 2 weeks. Weightbearing as tolerated with the cylindrical cast to be kept clean dry and intact. Walker or crutches for assistance PT/OT Elevate the left lower extremity on pillows. Aspirin for DVT prophylaxis. Pain control with p.o. medication Follow-up at [facility] orthopedics in 2 weeks for with a set of x-rays with the cast in place Plan is to discharge back to the [facility] later today. With questions have medical staff contact our clinic at [phone] Total Time Total Time Spent Total Time Spent (In Minutes): 20 mins Discharge Plan Discharge Items [facility]position[facility] Reason For Visit: Left Knee Chondromalacia Patellae Discharge Diagnosis: s/p Left knee patellar tendon reconstruction Activity: As commented below Lifting: None Bathing: Keep incision dry Bathing Comment: May shower later today Sexual Activity: Wait until after follow-up appointment Exercise/Sports: Wait until after follow-up appointment Weightbearing: Left weightbearing Weightbearing Comment: As tolerated with crutches or walker Non-emergency contact: Surgeon Call non-emergency contact if: you have any medication questions, your pain is not controlled, your temperature is above 101.5, your wound has increased drainage and your wound pain has increased Follow-up/Referrals: Heidy MARTINEZ [Primary Care Provider] - Diet: Regular Addtl Attending Provider Instructions: Post-operative Instructions Dear Patient and Family/Friends, Before you are discharged from the hospital, it is important to know what to expect when you get home after surgery. To that end, we have created this sheet of discharge instructions which covers many commonly asked questions. Make sure you go through this sheet in its entirety with your nurse before you are discharged. Please note that we will go over the specifics of your surgery and recovery when you return for your first post-operative visit. Sincerely, Dr. Jonas Medications 1. Oxycodone 5 mg: Take 1 to 2 tablets every 4-6 hours as needed for pos toperative pain control 2. Naproxen 500 mg: Take 1 tablet twice daily for the first 30 days postoperatively for pain and inflammation relief 3. Aspirin 81 mg: Take 1 tablet twice daily for blood clot prevention for the first 30 days postoperatively 4. Extra strength Tylenol 500 mg: Take 2 tablets every 6-8 hours as needed for additional pain relief. Pain Expect to be in a fair amount of pain after surgery. Remember, our goal is not to eliminate your pain, but to make it tolerable. It is a good idea to stay ahead of your pain by taking the medications you were prescribed once you get home. Typically, the pain starts improving 3-7 days after surgery. You should start weaning off the narcotic pain medication (oxycodone, hydrocodone, hydromorphone, morphine) as soon as your pain improves. Please call our office if your pain is not adequately controlled. Ice Ice your operative site at least 5 times a day for 15-30 minutes at a time. Make sure you have a thin cloth between the ice or cooling unit and your skin to prevent rene bite. This is especially important if you received a nerve block. Continue icing your operative site for the first 5-7 days after surgery, then as needed. Diet/Nausea/Vomiting Start by drinking clear liquids and eating crackers. If you can tolerate this, then you may resume your normal diet. If you feel nauseated or vomit, take Zofran/ondansetron (if prescribed). Please call our office if you have intractable nausea or vomiting, or, if after hours, you may go to the Emergency Room for help. Constipation Constipation is a common side effect of narcotic pain medication. If you have not had a bowel movement within 2 days after surgery, we recommend purchasing an over the counter laxative such as Milk of Magnesia, Dulcolax, or Miralax from a local pharmacy, and taking it as instructed. Call our clinic if any questions. Slings and Braces If you were placed in a sling or brace, it must be worn at all times, including sleep. You may remove your sling or brace for physical therapy, home exercises, and showering. The length of time you will be in your brace and range of motion restrictions depends on what surgery you had; these details will be reviewed at your first post-operative appointment. Nerve block The anesthesia team sometimes places a nerve block to help with post-operative pain control. This results in significant numbness and inability to move the extremity. The nerve block usually wears off in 8-12 hours, but sometimes can last up to 24 hours. Please call our office if you are still unable to move your extremity after 24 hours, unless you received a pain pump to take home. Nerve blocks typically wear off quickly, so start taking pain medication as soon as you start feeling soreness near your surgical site. Weight bearing and Range of Motion. Do not bear any weight through your operative extremity immediately after surgery. If you had upper extremity surgery, do not lift anything with that arm. If you are in a knee brace, keep it locked in place until your follow-up. We will discuss your weight bearing, range of motion, and lifting restrictions in detail at your first post-operative appointment. Continuous Passive Motion (CPM) Machine If you were prescribed a CPM machine, it will start after your first post- operative appointment, at which time we will give you instructions on the range of motion settings and duration of treatment Physical therapy You will be given a prescription for physical therapy or occupational therapy at your first post-operative appointment. Typically, patients start therapy within 1 week of surgery Wound care and showering We will inspect your wound at your first post-operative visit, and may do a dressing change at that time. Most patients will be in a water-proof dressing that is removed 14 days after surgery. It is normal to see some dried blood on the dressing. Do not remove your dressing, paper strips or sutures yourself unless you are given permission. Showering is allowed the day after surgery. Do not scrub or remove any dressings. The wound should not be submerged underwater (i.e. in a bathtub or pool) until 4 weeks after surgery JIM stockings If you were given white stockings, these are to be worn at all times except to shower (on both legs) for the first 2 weeks after surgery. Driving You may not drive while taking narcotic pain medication or while in a cast, splint, sling or brace. You, the patient, need to make the final determination about when you are safe to drive, however, the earliest you may consider driving after surgery is below: Hand/Wrist/Elbow Surgery: 3 days Shoulder Surgery: 2 weeks Hip,/Knee/Ankle Surgery: 4 weeks Fracture repair: 6 weeks Return to Work Your return to work depends on what surgery was done and what type of work you do. Please bring any paperwork your employer needs completed to your first post-operative visit. Also, bring a description of your job duties, as this helps us to understand what risks you may face at work. Travel Avoid long distance travel (greater than 1 hour) in airplanes and cars for the first 6 weeks after surgery. If you must travel, you need to have a Doppler ultrasound done before you travel to rule out a blood clot in your legs. Follow-up You should have a follow-up appointment already scheduled 1-2 days after surgery. If not, please contact our office to make this appointment before you leave the hospital. When to call the office It is normal to have swelling and bruising in the limb that was operated on. This will improve with time. It is also normal to have fevers for the first 2 days after surgery. Reasons you should call your doctor include: Uncontrolled pain; Nausea, vomiting, or constipation that does not improve with medication; Fevers over 101.5, chills, sweats; Drainage or bleeding from the wound; Foul odor; Spreading areas of redness; Any other concerns. Contact Information Please call Dr. Jonas's office at [phone] with any concerns. Pending Studies at Discharge: No Skilled Items Patient informed of condition?: Yes DNR: No Discharge Level of Care: Other Communicable Disease: No Discharge Prognosis: Stable Lines: None Urinary Catheter: No Medications and DC Order Prescriptions: New aspirin 81 mg Tablet,Delayed Release (Dr/Ec) 81 mg PO BID 30 Days Qty: 60 0RF acetaminophen [Tylenol Extra Strength] 500 mg Tablet 1,000 mg PO Q8 30 Days Qty: 180 0RF oxycodone 5 mg Tablet 5 - 10 mg PO Q4H PRN (Reason: Postoperative pain control) Qty: 30 0RF naproxen 500 mg tablet 500 mg PO BID 30 Days Qty: 60 0RF Continued ammonium lactate 12 % Lotion 1 applic TOPICAL BID atorvastatin [Lipitor] 10 mg Tablet 10 mg PO QPM vitamin A and D Ointment 1 applic TOPICAL BID amlodipine [Norvasc] 10 mg Tablet 10 mg PO QAM Admission Data Admit Date/Time: 01/05/25 14:16 Attending Provider: Herson Jonas Admit Provider: Herson Jonas Primary Care Provider: Heidy MARTINEZ
--- NOTE | 2025-01-06 11:10 | XRay Report ---
XR knee LT 1 or 2V routine HISTORY: 49 years-old Male s/p left patellar tendon reconstruction COMPARISON: Report fourth 2024 TECHNIQUE: 2 views of the left knee FINDINGS: Mild marginal osteophytic spurring of the knee. Postoperative changes with osteotomy and cannulated s crew projects over the tibial tuberosity from an anterior approach. Expected postoperative soft tissu e swelling with deep tissue air and overlying casting material. No acute fracture or unexpected opaqu e foreign body. IMPRESSION: Postoperative changes as above. ACT 112: Negative or not required by law. The above report was generated using voice recognition software. It may contain grammatical, syntax o r spelling errors. Electronically signed by: Cuba Adams M.D. 01/06/2025 11:09 AM
== END 2025-01-06 14:12 ==
LOC: EDBD → ASU 08:43 → 3E 08:43